=== PATIENT | male | born 1985 | race Two or more races ===

== ENCOUNTER 2024-11-28 00:28 | Emergency (ER) | payer OTHER ==
[~2024-11-28] VITALS: Ht 182.9 cm; Wt 99.8 kg
[2024-11-28] MEDS ORDERED: ACID REDUCER20 M1 PO (00:39)
[2024-11-28] MEDS ORDERED: VYVANSE (00:39)
[2024-11-28] MEDS ORDERED: CEPHALEXIN500 MG PO (04:27)
[2024-11-28] MEDS ORDERED: CEFTRIAXONE SODIUM 1,000 MG VIAL IM STA (04:28)
[2024-11-28] MEDS ORDERED: CEFTRIAXONE SODIUM 1,000 MG VIAL ONE (04:41)
== END 2024-11-28 04:45 | disposition home or self-care (01) ==
LOC: ER 00:30
DX: S61.022A Laceration with foreign body of left thumb without damage to nail, initial encounter (principal); W25.XXXA Contact with sharp glass, initial encounter; Y93.89 Activity, other specified; Y92.89 Other specified places as the place of occurrence of the external cause; Z91.040 Latex allergy status